=== PATIENT | male | born 1980 | race Caucasian/White ===

== ENCOUNTER 2024-02-10 18:11 | Inpatient (IN) | payer SELFPAY ==
[~2024-02-10] VITALS: Ht 170.2 cm; Wt 74.8 kg
[2024-02-10] MEDS: LORAZEPAM 2MG/ML INJ IV ONE (18:36)
[2024-02-10 18:59] LABS: BASOPHILS % 0.6 % (0.0-2.0); EOSINOPHILS % 4.4 % (0.0-5.0); HEMATOCRIT. 42.3 % (42.0-52.0); HEMOGLOBIN. 14.5 g/dL (14.0-18.0); LYMPHOCYTES % 28.2 % (20.0-50.0); MEAN CORPUSCULAR HEMOGLOBIN 32.4 pg (28.0-32.0); MEAN CORPUSCULAR HGB CONC 34.3 g/dL (31.0-37.0); MEAN CORPUSCULAR VOLUME 94.4 fL (80.0-94.0); MEAN PLATELET VOLUME 7.6 fl (7.4-10.4); MONOCYTES % 7.7 % (2.0-8.0); NEUTROPHILS % 59.1 % (40.0-76.0); PLATELET 243 x1000/uL (130-400); RED BLOOD CELL COUNT 4.48 mill/uL (4.7-6.1); WHITE BLOOD COUNT 6.8 x1000/uL (4.5-11.0)
[2024-02-10 19:07] LABS: CARBON DIOXIDE 27 mEq/L (21-32); CHLORIDE 105 mEq/L (98-107); POTASSIUM 4.4 mEq/L (3.5-5.1); SODIUM 139 mEq/L (136-145)
[2024-02-10 19:08] LABS: CALCIUM 9.4 mg/dL (8.7-10.4)
[2024-02-10 19:12] LABS: CREATININE 0.7 mg/dL (0.6-1.3)
[2024-02-10 19:13] LABS: GLUCOSE 106 mg/dL (70-105); UREA NITROGEN BLOOD 6 mg/dL (9-23)
[2024-02-10 19:14] LABS: ETHANOL BLOOD < 10 mg/dL (<10); TROPONIN I HIGH SENSITIVITY < 4 ng/L (3.0-53)
[2024-02-10] MEDS: ACETAMINOPHEN 500MG TABLET PO NR (21:23)
[2024-02-10] MEDS: LEVETIRACETAM 1000MG PREMIX 100 ML IV NR (21:28)
[2024-02-11 00:20] VITALS: BP 109/58; PULSE 108; RESP 20; TEMP 98.8
[2024-02-11 08:15] VITALS: BP 101/59; PULSE 82; RESP 18; TEMP 97.6
[2024-02-11] MEDS ORDERED: DIPHENHYDRAMINE 50MG/ML VIAL IV PRN (09:45)
[2024-02-11] MEDS ORDERED: LORAZEPAM 2MG/ML INJ IV PRN (09:45)
[2024-02-11] MEDS ORDERED: CLONIDINE 0.1MG TABLET PO PRN (09:45)
[2024-02-11] MEDS ORDERED: IPRATROPIUM/ALBUTEROL 0.5-3(2.5)MG/3ML NEB HHN PRN (09:45)
[2024-02-11] MEDS ORDERED: ONDANSETRON HCL 4MG/2ML INJ IV PRN (09:45)
[2024-02-11] MEDS: LEVETIRACETAM 500MG PREMIX 100 ML IV SCH (10:51)
[2024-02-11] MEDS ORDERED: NALOXONE HCL 0.4MG/ML VIAL IV PRN (15:45)
[2024-02-11 16:00] VITALS: BP 108/79; PULSE 79; RESP 20; TEMP 98.1
[2024-02-11] MEDS: HYDROCODONE/ACETAMINOPHEN 5/325MG TABLET PO PRN (16:40)
[2024-02-11 18:56] VITALS: BP 108/79; PULSE 79; RESP 20; TEMP 98.1
[2024-02-11 20:34] VITALS: BP 110/67; PULSE 74; RESP 20; TEMP 98.1
[2024-02-12 08:24] LABS: BASOPHILS % 0.9 % (0.0-2.0); EOSINOPHILS % 5.6 % (0.0-5.0); HEMATOCRIT. 41.6 % (42.0-52.0); LYMPHOCYTES % 28.8 % (20.0-50.0); MEAN CORPUSCULAR HEMOGLOBIN 31.7 pg (28.0-32.0); MEAN CORPUSCULAR HGB CONC 33.7 g/dL (31.0-37.0); MEAN PLATELET VOLUME 8.1 fl (7.4-10.4); MONOCYTES % 7.7 % (2.0-8.0); PLATELET 230 x1000/uL (130-400); RED BLOOD CELL COUNT 4.42 mill/uL (4.7-6.1); RED CELL DISTRIBUTION WIDTH 14.5 % (11.6-14.6); WHITE BLOOD COUNT 4.8 x1000/uL (4.5-11.0)
[2024-02-12 08:30] LABS: CALCIUM 9.7 mg/dL (8.7-10.4); CHLORIDE 103 mEq/L (98-107); POTASSIUM 3.9 mEq/L (3.5-5.1); SODIUM 137 mEq/L (136-145)
[2024-02-12 08:31] LABS: CARBON DIOXIDE 26 mEq/L (21-32)
[2024-02-12 08:36] LABS: CREATININE 0.7 mg/dL (0.6-1.3); GLUCOSE 93 mg/dL (70-105); UREA NITROGEN BLOOD 11 mg/dL (9-23)
[2024-02-12 08:45] VITALS: BP 90/47; PULSE 74; RESP 19; TEMP 98
[2024-02-12] MEDS: ACETAMINOPHEN 325MG TABLET PO PRN (08:52)
[2024-02-12 11:43] VITALS: BP 96/54; PULSE 67; RESP 18; TEMP 98.2
[2024-02-12] MEDS ORDERED: KEPP500 MT (12:04)
[2024-02-12 16:23] VITALS: BP 97/60; PULSE 83; RESP 18; TEMP 98.6
[2024-02-12 16:48] VITALS: BP 97/60; PULSE 83; TEMP 97.6; O2SAT 98
[2024-02-12] MEDS ORDERED: LEVETIRACETAM 250MG TABLET PO SCH (21:00)
== END 2024-02-12 17:35 | disposition home or self-care (01) | DRG 53 ==
LOC: ER 18:11 → 5WST 21:16 → EDBEDREQ 21:19 → EDBEDREQTM 21:19 → 7WST 02-11 11:31
PROVIDERS: ADMIT Internal Medicine; ATTEND Internal Medicine
DX: G40.A09 Absence epileptic syndrome, not intractable, without status epilepticus (principal); Z86.73 Personal history of transient ischemic attack (TIA), and cerebral infarction without residual deficits
CPT/HCPCS: 36415; 80048; 80320; 84484; 85025; 93970; 99285; J1953; J2060; G0480